=== PATIENT | female | born 1935 | race Caucasian/White ===

== ENCOUNTER → 2016-09-01 | Outpatient (CLI) | payer MEDICARE ==
[~2016-09-01] MED LIST: ALEN70TA15 PO; ASPI-558 PO; CALC600T86 PO; CARV12.5 PO; CHLO25TA16 PO; CLOP75TA33 PO; COLE625T10 PO; DIPH25TA25 PO; ERGO400T6 PO; EZET10TA17 PO; FENO145T10 PO; FOLI-40 PO; LEVO200T10 PO; LOSA100T44 PO; LUTE20CA12 PO; METF500T4 PO; OMEG500C7; POTA2TAB18; PYRI50TA9; ROSU20TA11 PO; VITAMIN B12
== END ==
LOC: WC.BC 07:36
DX: Z12.31 Encounter for screening mammogram for malignant neoplasm of breast (principal); N64.59 Other signs and symptoms in breast; N64.89 Other specified disorders of breast
CPT/HCPCS: 77063; G0202